=== PATIENT | female | born 1955 | race Caucasian/White ===

== ENCOUNTER 2018-08-13 09:46 | Outpatient (CLI) | payer MEDICARE, OTHER, SELFPAY ==
[2018-08-13] VITALS (9 sets, daily range): BP systolic 120–154; BP diastolic 73–93; PULSE 83–88; RESP 16–18; TEMP 36.1; O2SAT 98–100
--- NOTE | 2018-08-13 09:51 | DI.RAD.S_ITS ---
PROCEDURE: XR LUMBAR SPINE MIN 4V INDICATIONS: Eval TECHNIQUE: 5 views of the lumbar spine acquired. COMPARISON: [facility], [place], SPINE LUMB 2 OR 3VW, 06/19/2016, 15:26. FINDINGS: Bones: 5 nonrib-bearing vertebrae are present. There is normal bony alignment. No vertebral body compression fractures. Multilevel disc degeneration, most notably in moderate to severe at the L4-L5 and L5-S1 level similar to prior examination. Moderate L4-L5 and L5-S1 facet joint arthropathy. No suspicious bony lesions. Oblique views demonstrate no pars defects. Soft tissues: Overlying bowel gas pattern is normal. No suspicious soft tissue calcifications. IMPRESSION: Degenerative disc and facet disease. Dictated by: Abdelrahman NUNEZ Interpreted: Breanne Reynolds MD on 08/13/2018 at 10:31 Approved by: Breanne Reynolds M.D. on 08/13/2018 at 14:46
--- NOTE | 2018-08-13 09:51 | DI.RAD.S_ITS ---
PROCEDURE: PAIN L/S FACET INJ/BLK 1ST KEVEN COMPARISON: None. INDICATIONS: SPONDYLOSIS FINDINGS: 6 intraoperative fluoroscopy images demonstrate bilateral L4-L5 and L5-S1 facet joint injections. IMPRESSION: Fluoroscopy for pain management. Dictated by: Laura Blancas M.D. on 08/13/2018 at 15:25 Approved by: Laura Blancas M.D. on 08/13/2018 at 15:26
--- NOTE | 2018-08-13 10:50 | P.PCN_ITS ---
Procedures Date/Time Date of procedure: 08/13/18 Time of procedure: 10:49 General Procedure description: PREOP DIAGNOSIS 1. FACET ARTHROPATHY 2. AXIAL LBP 3. MULTILEVEL DDD POST OP DIAGNOSIS 1. FACET ARTHROPATHY 2. AXIAL LBP 3. MULTILEVEL DDD PROCEDURES 1. FLUORSCOPICALLY GUIDED CONTRAST CONTROLLED FACET JOINT INJECTIONS BILATERAL L4/5, L5/S1 PHYSICIAN: Gianni Earl, DO INDICATIONS Kaylynn is referred by PAC Good for treatment of Axial LBP FINDINGS Multilevel Facet Arthropathy with Clinically significant axial LBP DESCRIPTION OF PROCEDURE Fluoroscopically guided, contrast-controlled bilateral L4/5, L5/S1 facet joint i njections. Following denial of allergy and review of potential side effects and complications, including, but not necessarily limited to, infection, allergic reaction, local tissue breakdown, stroke, temporary or permanent nerve injury, paralysis, and possible , the patient indicated that the patient understood and agreed to proceed. An informed consent document was signed by the patient, witnessed by a nurse, and placed in the patient's chart. Additionally, other treatment options including medications, modalities, and physical therapy were reviewed with the patient. After review of previous anaesthesic history and IV conscious sedation the patient was deemed safe to proceed with todays procedure with IV conscious sedation as ASA class II designation. Safety time-out was performed to confirm patient ID, procedure to be performed and site of procedure. IV sedation was accomplished with a combination of 2mg of Versed and 50mcg of Fentanyl was administered by the RN after DO order, titrated to patient comfort during the course of the procedure while the patient remained responsive to all verbal commands In the prone position, following sterile prep and drape of the lumbar region, the posterior aspect of the L4/5, L5/S1 facet joints were identified fluoroscopically. The skin was anesthetized via a 25-gauge 1.5-inch needle with 1% lidocaine solution into the corresponding facet joints. At this point, a 22- gauge 3.5-inch spinal needle was atraumatically introduced and advanced under fluoroscopic guidance into the corresponding facet joints. Following negative aspiration, injections of approximately 0.2-cc of Isovue 200 confirmed interarticular placement without vascular uptake. The identical procedure was then performed at the L4/5, L5/S1 facet joints on the left. Radiological data, including multiple fluoroscopic views of the lumbosacral spine, reveal a spinal needle at the L4/5, L5/S1 facet joints bilaterally. Subsequent views show flow of contrast material both superiorly and inferiorly within the joint space without vascular or intrathecal uptake. At this point, a total of 0.5 cc including a mixture of 0.25cc Marcaine and 0.25cc betamethasone was injected without complication into each of the corresponding facet joints. The patient tolerated the procedure well without signs or symptoms of complications prior to transfer to the recovery area continued monitoring without incident. The patient was then transferred to the recovery area where they were observed for an appropriate period of time after the injection. The patient reported a VAS score of 7 prior to the procedure and a post- procedure VAS of 0. Total Fluoroscopy Time: 20.3 seconds Total Conscious Sedation Time: 24min POST OP INSTRUCTIONS The patient was provided a Pain Log to continue to record their response to the target-specific procedure prior to follow-up visit with their referring physician. Additionally, specific post-injection care instructions and a contact number to our office were provided if concerns arise regarding possible complications associated with the procedure are suspected. Gianni Earl DO Complications: none
[2018-08-13] MEDS: fentaNYL 100 MCG/2 ML INJ 50 MCG IV (11:03)
[2018-08-13] MEDS: MIDAZOLAM 5 MG/5 ML VIAL IV (11:03)
[2018-08-13] MEDS: LIDOCAINE 1% 20 ML INJ 10 ML INJ (11:13)
[2018-08-13] MEDS: BUPIVACAINE 0.5% (PF) VIAL 2 ML INJ (11:14)
[2018-08-13] MEDS: BETAMETHASONE 30 MG/5 ML MDV 12 MG INJ (11:14)
[2018-08-13] MEDS: IOPAMIDOL 15 ML VIAL 3 ML INJ (11:14)
--- NOTE | 2018-08-13 11:20 | PC.NURSE ---
ASSISTING PT OFF TABLE AND TRANSPORTING TO POST PROC AREA IN STABLE CONDITION
--- NOTE | 2018-08-13 11:28 | PC.NURSE ---
CONTINUED CARE DURING POST PROC CARE IN POST PROC AREA. PT IN STABLE CONDITION
== END 2018-08-13 11:56 | disposition home or self-care (01) ==
LOC: RAD 09:51
PROVIDERS: PCP Physician Assistant Medical; Visit Provider Physical Medicine & Rehabilitation
DX: M47.817 Spondylosis without myelopathy or radiculopathy, lumbosacral region (principal); M47.816 Spondylosis without myelopathy or radiculopathy, lumbar region; M51.36 Other intervertebral disc degeneration, lumbar region; M51.37 Other intervertebral disc degeneration, lumbosacral region; M54.5 Low back pain
CPT/HCPCS: 64493; 64494; 72110; 99152; J0702; J2250; J3010

== ENCOUNTER 2018-10-27 09:42 | Outpatient (CLI) | payer MEDICARE, OTHER, SELFPAY ==
[2018-10-27] VITALS (9 sets, daily range): BP systolic 130–151; BP diastolic 75–91; PULSE 79–92; RESP 16–18; TEMP 36.4; O2SAT 98–100
--- NOTE | 2018-10-27 09:44 | DI.RAD.S_ITS ---
PROCEDURE: PAIN L/SI FACET INJ/BLK 1STL INDICATIONS: SPONDYLOSIS FINDINGS: Fluoroscopic spot filming was performed to verify placement of spinal needles at the L4, L5, S1 level(s), as labeled on the films. Appropriate location(s) of the needle tip(s) was confirmed by injection of iodinated contrast. Dictated by: Khai Brown M.D. on 10/27/2018 at 11:18 Approved by: Khai Brown M.D. on 10/27/2018 at 11:19
[2018-10-27] MEDS: fentaNYL 100 MCG/2 ML INJ 50 MCG IV (10:49)
[2018-10-27] MEDS: MIDAZOLAM 5 MG/5 ML VIAL IV (10:49)
[2018-10-27] MEDS: IOPAMIDOL 15 ML VIAL 3 ML INJ (10:57)
[2018-10-27] MEDS: BUPIVACAINE 0.5% (PF) VIAL 5 ML INJ (10:57)
[2018-10-27] MEDS: LIDOCAINE 1% 20 ML INJ 10 ML INJ (10:57)
--- NOTE | 2018-10-27 11:01 | PC.NURSE ---
ASSISTING PT OFF TABLE AND TRANPSORTING TO POST PROC AREA IN STABLE CONDITION
--- NOTE | 2018-10-27 11:06 | P.PCN_ITS ---
Procedures Date/Time Date of procedure: 10/27/18 Time of procedure: 11:04 General Procedure description: Procedure description: 1. FACET ARTHROPATHY PROCEDURES: 1. BILATERAL- L4, L5 and S1 MB BLOCKS PHYSICIAN: DO SARAH Poe Kaylynn is referred by PAC Aguilar for treatment of Bilateral Axial LBP. DESCRIPTION OF PROCEDURE Fluoroscopically guided, contrast-controlled bilateral L4, L5 and S1 medial branch blocks with 0.5cc of 0.5% Marcaine. Following review of allergy and review of potential side effects and complications, including, but not necessarily limited to, infection, allergic reaction, local tissue breakdown, nerve injury, paralysis, stroke and possible , the patient indicated that the patient understood and agreed to proceed. An informed consent document was signed by the patient, witnessed by a nurse, and placed in the patient's chart. After review of previous anaesthesic history and IV conscious sedation the patient was deemed safe to proceed with todays procedure with IV conscious sedat ion as ASA class II designation. Safety time-out was performed to confirm patient ID, procedure to be performed and site of procedure. IV sedation was accomplished with a combination of 2mg of Versed and 50 mcg of Fentanyl was administered by the RN after DO order, titrated to patient comfort during the course of the procedure while the patient remained responsive to all verbal commands In the prone position, following sterile prep and drape of the lumbar region, the right L4, L5 and S1 anatomical location of the medial branch of the dorsal ramus was identified fluoroscopically. Subsequently an anesthetic skin wheal using 1% lidocaine solution was initiated at each of the anatomical spots. Subsequently then a 22-gauge 3.5-inch spinal needle was atraumatically introduced and advanced under fluoroscopic guidance at each of the corresponding sites at the right L4, L5 and S1 MB. After negative aspiration, 0.2 cc of Isovue 200 was injected, confirming placement without vascular or intrathecal uptake. Subsequently then 0.5 cc of 0.5% Marcaine solution was injected at each of the corresponding sites at the right L4, L5 and S1 medial branch locations. The identical procedure was replicated on the left. The patient tolerated the procedure well without signs or symptoms of complications prior to transfer to the recovery area continued monitoring without incident. Post-procedure, the patient was monitored initiating provocative activities to measure the amount of relief from block of the facetogenic pain. The patient reported a VAS of 7 prior to the procedure and a post-procedure VAS of 1. It has been a pleasure to assist in the diagnostic and therapeutic care of your patient. Total Fluoroscopy Time: 24.8 seconds Total Conscious Sedation Time: 24min POST OP INSTRUCTIONS The patient was provided with a Pain Log to complete over the next several hours and subsequent days prior to the patient's follow up with the ordering physician. If the patient has plant technician relief to the solution applied, then they may be a candidate for medial branch rhizotomy. The patient is aware, was provided, once again, with a Pain Log and will follow up with the referring physician for review and clinical correlation Gianni Earl DO
[2018-10-27] MEDS: BETAMETHASONE 30 MG/5 ML MDV 12 MG INJ (11:09)
--- NOTE | 2018-10-27 11:09 | PC.NURSE ---
Pt returned from procedure via wheelchair awake and alert, able to transfer self with standby assist to chair. Resumed monitoring from Kim GALO.
== END 2018-10-27 11:43 ==
LOC: RAD 09:43
PROVIDERS: PCP Physician Assistant Medical; Visit Provider Physical Medicine & Rehabilitation
DX: M99.83 Other biomechanical lesions of lumbar region (principal); M47.817 Spondylosis without myelopathy or radiculopathy, lumbosacral region
CPT/HCPCS: 64493; 64494; 99152; J0702; J2250; J3010

== ENCOUNTER 2019-01-28 11:03 | Outpatient (CLI) | payer MEDICARE, OTHER, SELFPAY ==
[2019-01-28] VITALS (13 sets, daily range): BP systolic 103–149; BP diastolic 54–96; PULSE 78–84; RESP 16–20; TEMP 36.6; O2SAT 97–100
--- NOTE | 2019-01-28 11:05 | DI.RAD.S_ITS ---
PROCEDURE: PAIN L/S MED/LAT N RFA BILAT INDICATIONS: SPONDYLOSIS FINDINGS: Fluoroscopic spot filming was performed to verify placement of spinal needles at the L4, L5, S1 level(s), as labeled on the films. Appropriate location(s) of the needle tip(s) was confirmed by injection of iodinated contrast. Dictated by: Khai Brown M.D. on 01/28/2019 at 13:31 Approved by: Khai Brown M.D. on 01/28/2019 at 13:32
[2019-01-28] MEDS: fentaNYL 100 MCG/2 ML INJ 50 MCG IV (12:07)
[2019-01-28] MEDS: MIDAZOLAM 5 MG/5 ML VIAL IV (12:07)
[2019-01-28] MEDS: LIDOCAINE 1% 20 ML 10 ML INJ (12:26)
[2019-01-28] MEDS: BUPIVACAINE 0.5% (PF) VIAL 2 ML INJ (12:26)
[2019-01-28] MEDS: BETAMETHASONE 30 MG/5 ML MDV 12 MG INJ (12:26)
--- NOTE | 2019-01-28 12:52 | PC.NURSE ---
Post procedure note: Time out t 1205. Medicated per providers orders. Patient tolerated procedure well. VSS throughout. Able to sit up and transfer to wheelchair without difficulties. hand off report given to Bina Roque RN at 1250. Patient transferred from w/c to recliner with stand by assist. No complaints of pain 0/10. Denies any numbness or tingling to lower extremities.
--- NOTE | 2019-01-28 12:58 | P.PCN_ITS ---
Procedures Date/Time Date of procedure: 01/28/19 Time of procedure: 12:58 General Procedure description: PREOP DIAGNOSIS 1. RECALCITRANT FACET ARTHROPATHY, POST OP DIAGNOSIS 1. RECALCITRANT FACET ARTHROPATHY PROCEDURES 1. BILATERAL L4 AND L5 MEDIAL BRANCH RADIOFREQUENCY NEUROTOMY AND S1 DORSAL RAMUS BRANCH RADIOFREQUENCY NEUROTOMY, PHYSICIAN: Gianni Earl DO INDICATIONS: Kaylynn is referred by RACHEL Griffith for treatment of facet arthropathy. DESCRIPTION OF PROCEDURE Bilateral L4 and L5 medial branch radiofrequency neurotomy and right S1 dorsal ramus radiofrequency neurotomy under fluoroscopy with conscious sedation. The patient is well known to this clinic having undergone previous facet injections with good but temporary relief. The patient has experienced appropriate, concordant relief with previous facet and median branch blocks but the patient's pain has been recalcitrant to further conservative measures. Therefore, based upon the patient's relief and persistent symptoms, the patient is considered an appropriate candidate for facet rhizotomy. All of the patient's questions regarding the risks versus benefits of the procedure, including, but not limited to, bleeding, infection, temporary as well as lasting nerve injury, paralysis, stroke, and , as well treatment alternatives were answered to satisfaction. After obtaining informed consent, denial of pertinent drug allergies, as well as being made aware of the potential risks of bleeding, infection, spinal cord trauma, paralysis, temporary and permanent nerve damage, seizure, stroke, and possible , the patient was brought to the fluoroscopy suite and positioned prone on the fluoroscopy table. The lumbar region was prepped with Betadine and covered with a fenestrated drape in the usual sterile fashion. Appropriate monitors applied including pulse oximeter, pulse, and blood pressure for regular monitoring throughout the procedure. After review of previous anaesthesic history and IV conscious sedation the patient was deemed safe to proceed with todays procedure with IV conscious sedation as ASA class II designation. Safety time-out was performed to confirm patient ID, procedure to be performed and site of procedure. IV sedation was accomplished with a combination of 2mg of Versed and 50mcg of Fentanyl administered by the RN after DO order, titrated to patient comfort during the course of the procedure while the patient remained responsive to all verbal commands. After local infiltration using 1% lidocaine, under fluoroscopic guidance, a 10- cm RF insulated needle with a 10-mm active tip was positioned parallel to the junction of the right sacral ala and the superior articulating process where the S1 dorsal ramus resides. Needle placement was confirmed with sensory stimulation at 50 Hz, with motor stimulation of .5v on the right which produced local stimulation without radicular component. The stimulation was then increased to 1.5v with, once again, only local multifidus stimulation without radicular component. This was then followed by two discreet lesions performed at 80 degrees Celsius for 90 seconds each. The needle was then removed and the identical procedure was performed along the length of the right L5 medial branch with motor stimulation at .7v on the right. The identical procedure was once again performed along the length of the right L4 medial branch with motor stimulation of .5v on the right. The identical procedure was repeated on the left. The patient tolerated the procedure well without signs or symptoms of complications prior to transfer to the recovery area continued monitoring without incident. The patient was then transferred to the recovery area where they were observed for an appropriate period of time after the injection. The patient reported a VAS score of 9 prior to the procedure and a post-procedure VAS of 0. Total Fluoroscopy Time: 22.7 seconds Total Conscious Sedation Time: 34min POST OP INSTRUCTIONS The patient was provided a Pain Log to continue to record the patient's response to the target-specific procedure prior to the patient's follow-up visit with the referring physician. Additionally, specific post-injection care instructions and a contact number to our office were provided if concerns arise regarding possible complications associated with the procedure are suspected. Gianni Earl DO Complications: none
== END 2019-01-28 13:09 | disposition home or self-care (01) ==
PROVIDERS: PCP Physician Assistant Medical; Visit Provider Physical Medicine & Rehabilitation
DX: M47.816 Spondylosis without myelopathy or radiculopathy, lumbar region (principal); M47.817 Spondylosis without myelopathy or radiculopathy, lumbosacral region
CPT/HCPCS: 64635; 64636; 99152; J0702; J2250; J3010